=== PATIENT | female | born 1995 | race Caucasian/White ===

== ENCOUNTER 2017-07-10 18:19 | Emergency (ER) | payer OTHER ==
[~2017-07-10] VITALS: Ht 162.6 cm; Wt 90.5 kg
[~2017-07-10 18:19] MED LIST: AZIT250T94 PO; IBUP-1542 PO; PREN1TAB62 PO
[2017-07-10 18:42] VITALS: Ht 162.6 cm; Wt 90.5 kg
[2017-07-10] MEDS ORDERED: ONDANSETRON 4 MG INJ IV STA (21:05)
[2017-07-10] MEDS ORDERED: KETOROLAC 30 MG INJ IV STA (21:05)
[2017-07-10] MEDS ORDERED: SOD CHLORIDE 0.9% 500 ML IV STA (21:05)
[2017-07-10 22:25] LABS: BASOPHILS % 0.6 % (0.0-2.0); EOSINOPHILS # 0.1 10^3/ul (0.0-0.5); EOSINOPHILS % 1.2 % (0.0-7.0); HEMATOCRIT 39.8 % (37.0-47.0); HEMOGLOBIN 12.4 g/dl (12.0-16.0); LYMPHOCYTES # 2.2 10^3/ul (0.8-2.9); LYMPHOCYTES % 32.9 % (15.0-51.0); MEAN CORPUSCULAR HEMOGLOBIN 26.3 pg (29.0-33.0); MEAN CORPUSCULAR HGB CONC 31.2 g/dl (32.0-37.0); MEAN CORPUSCULAR VOLUME 84.3 fl (82.0-101.0); MEAN PLATELET VOLUME 11.2 fl (7.4-10.4); MONOCYTE # 0.5 10^3/ul (0.3-0.9); MONOCYTES % 7.1 % (0.0-11.0); NEUTROPHILS % 58.1 % (39.0-77.0); PLATELET COUNT 241 10^3/UL (140-415); RED BLOOD COUNT 4.72 10^6/ul (4.20-5.40); RED CELL DISTRIBUTION WIDTH 14.7 % (11.5-14.5); WHITE BLOOD COUNT 6.8 10^3/ul (4.8-10.8)
[2017-07-10 22:31] LABS: ADD UMIC YES; UR ASCORBIC ACID NEGATIVE (NEGATIVE); UR BILIRUBIN (Dip) NEGATIVE (NEGATIVE); UR BLOOD (Dip) NEGATIVE (NEGATIVE); UR CLARITY CLOUDY (CLEAR); UR COLOR YELLOW (YELLOW); UR GLUCOSE (Dip) NEGATIVE (NEGATIVE); UR KETONES (Dip) NEGATIVE (NEGATIVE); UR LEUKOCYTE ESTERASE (Dip) 3+ Leu/ul (NEGATIVE); UR MUCUS MODERATE /HPF (NONE SEEN); UR NITRITE (Dip) NEGATIVE (NEGATIVE); UR RBC 0 /HPF (0-5); UR SPECIFIC GRAVITY (Dip) 1.027 (1.003-1.030); UR SQUAMOUS EPITHELIAL CELL MODERATE /HPF (FEW); UR TOTAL PROTEIN (Dip) NEGATIVE (NEGATIVE); UR UROBILINOGEN (Dip) NEGATIVE (NEGATIVE)
[2017-07-10 22:43] LABS: INR 0.91; PROTIME 12.3 Sec (12.2-14.2)
[2017-07-10 22:46] LABS: CALCIUM 9.1 mg/dl (8.4-10.2); CREATININE 0.76 mg/dl (0.44-1.00)
--- NOTE | 2017-07-10 22:51 | RADRPT ---
PROCEDURE: US right upper quadrant CLINICAL INDICATION: Abdominal pain TECHNIQUE: Multiple real-time images were acquired of the patient's right upper abdomen utilizing a high resolution transducer. COMPARISON: CT abdomen and pelvis 07/07/2017 FINDINGS: Liver: Normal in size, contour and echogenicity. Normal directional blood flow is seen within the p atent main portal vein. The maximum dimension estimated at 16.6 cm . Gallbladder: Normal. No sonographic Burgos's sign is reported. Common bile duct: Normal; 1.7 mm. There is no evidence for choledocholithiasis. Right Kidney: Normal; maximum length measured at approximately 10.6 cm. Pancreas: Visualized portions are normal. The tail is partially obscured by bowel gas. RPTAT:HJJR IMPRESSION: Normal right upper quadrant ultrasound. Physician Paty Date Time Electronically viewed and signed by Physician Paty on 07/10/2017 22:50 /
[2017-07-10] MEDS ORDERED: CEPH-443 PO (22:57)
[2017-07-10 23:13] VITALS: BP 121/71; PULSE 72; RESP 20
--- NOTE | 2017-07-11 00:39 | ERD ---
ER Documentation Chief Complaint Date/Time DATE: 07/11/17 TIME: 00:35 Chief Complaint ABDOMINAL PAIN SINCE LAST NIGHT, DENIES N/V. HPI This patient is a 22-year-old female presenting to the emergency department with complaints of diffuse abdominal pain which radiates to the back bilaterally ongoing intermittently for the past 3 days. The patient was here 3 days ago and diagnosed with pneumonia and urinary tract infection. She was treated with a Z-Lex and 1 g Rocephin in the department. Symptoms are worse with standing. Constant. Pain is cramping in nature. She denies urinary symptoms, fevers, chills, or other symptoms currently. ROS All systems reviewed and are negative except as per history of present illness. Medications Home Meds Active Scripts Cephalexin* (Keflex*) 500 Mg Capsule, 500 MG PO TID for 7 Days, #21 CAP Prov:MALI DE ANDA PA-C 07/10/17 Ibuprofen* (Motrin*) 600 Mg Tab, 600 MG PO Q6, #30 TAB Prov:KEYLA GRANDE PA-C 07/07/17 Azithromycin* (Zithromax*) 250 Mg Tablet, 250 MG PO .ZPACK DIRECTED, #6 TAB TAKE 500 MG (2 TABS) THE FIRST DAY THEN 250 MG (1 TAB) DAYS 2-5 Prov:KEYLA GRANDE PA-C 07/07/17 Reported Medications Vit-Iron Fumarate-FA ( Vitamin Tablet) 1 Each Tablet, 1 TAB PO DAILY, TAB 03/06/16 Allergies Allergies: Coded Allergies: No Known Allergy (Unverified , 03/06/16) PMhx/Soc Medical and Surgical Hx: pt denies Medical Hx, pt denies Surgical Hx History of Surgery: No Anesthesia Reaction: No Hx Neurological Disorder: No Hx Respiratory Disorders: No Hx Cardiac Disorders: No Hx Psychiatric Problems: No Hx Miscellaneous Medical Probl: No Hx Alcohol Use: No Hx Substance Use: No Hx Tobacco Use: No Smoking Status: Never smoker Physical Exam Vitals Vital Signs Date Time Temp Pulse Resp B/P Pulse Ox O2 Delivery O2 Flow Rate FiO2 07/10/17 23:13 72 20 121/71 99 Room Air 07/10/17 18:42 98.8 86 17 111/56 98 Physical Exam Const: Nontoxic, well-appearing female in no acute distress. Head: Atraumatic Eyes: Normal Conjunctiva ENT: Normal External Ears, Nose and Mouth. Neck: Full range of motion..~ No meningismus. Resp: Clear to auscultation bilaterally Cardio: Regular rate and rhythm, no murmurs Abd: Soft, Diffuse tenderness to palpation with no rebound tenderness or guarding, non distended. Normal bowel sounds. There is increased tenderness palpation of the right upper quadrant but no true Bugros sign. Skin: No petechiae or rashes Back: No midline or flank tenderness Ext: No cyanosis, or edema Neur: Awake and alert Psych: Normal Mood and Affect Result Diagram: 07/10/17214407/10/172144 Results 24 hrs Laboratory Tests Test 07/10/17 21:45 07/10/17 21:50 White Blood Count 6.810^3/ul Red Blood Count 4.7210^6/ul Hemoglobin 12.4g/dl Hematocrit 39.8% Mean Corpuscular Volume 84.3fl Mean Corpuscular Hemoglobin 26.3pg Mean Corpuscular Hemoglobin Concent 31.2g/dl Red Cell Distribution Width 14.7% Platelet Count 59556^3/UL Mean Platelet Volume 11.2fl Neutrophils % 58.1% Lymphocytes % 32.9% Monocytes % 7.1% Eosinophils % 1.2% Basophils % 0.6% Nucleated Red Blood Cells % 0.0/100WBC Neutrophils # (Manual) 4.010^3/ul Lymphocytes # 2.210^3/ul Monocytes # 0.510^3/ul Eosinophils # 0.110^3/ul Basophils # 0.010^3/ul Nucleated Red Blood Cells # 0.010^3/ul Prothrombin Time 12.3Sec Prothrombin Time Ratio 1.0 INR International Normalized Ratio 0.91 Activated Partial Thromboplast Time 27.0Sec Sodium Level 144mmol/L Potassium Level 4.0mmol/L Chloride Level 105mmol/L Carbon Dioxide Level 24mmol/L Anion Gap 19 Blood Urea Nitrogen 9mg/dl Creatinine 0.76mg/dl Glucose Level 75mg/dl Calcium Level 9.1mg/dl Total Bilirubin 0.0mg/dl Direct Bilirubin 0.00mg/dl Indirect Bilirubin 0.0mg/dl Aspartate Amino Transf (AST/SGOT) 23IU/L Alanine Aminotransferase (ALT/SGPT) 33IU/L Alkaline Phosphatase 68IU/L Total Protein 8.0g/dl Albumin 4.0g/dl Globulin 4.00g/dl Albumin/Globulin Ratio 1.00 Lipase 132U/L Urine Color YELLOW Urine Clarity CLOUDY Urine pH 6.0 Urine Specific [place] 1.027 Urine Ketones NEGATIVEmg/dL Urine Nitrite NEGATIVEmg/dL Urine Bilirubin NEGATIVEmg/dL Urine Urobilinogen NEGATIVEmg/dL Urine Leukocyte Esterase 3+Jeanne/ul Urine Microscopic RBC 0/HPF Urine Microscopic WBC 12/HPF Urine Squamous Epithelial Cells MODERATE/HPF Urine Calcium Oxalate Crystals MANY/HPF Urine Mucus MODERATE/HPF Urine Hemoglobin NEGATIVEmg/dL Urine Glucose NEGATIVEmg/dL Urine Total Protein NEGATIVEmg/dl Current Medications Medications (Trade) Dose Ordered Sig/Tavon Route PRN Reason Start Time Stop Time Status Last Admin Dose Admin Sodium Chloride (NS) 500 ml @ 500 mls/hr Q1H STAT IV 07/10/17 21:05 07/10/17 22:04 DC 07/10/17 22:05 Ondansetron HCl (Zofran Inj) 4 mg ONCE STAT IV 07/10/17 21:05 07/10/17 21:08 DC 07/10/17 22:05 Ketorolac Tromethamine (Toradol) 30 mg ONCE STAT IV 07/10/17 21:05 07/10/17 21:08 DC 07/10/17 22:04 Procedures/MDM 22-year-old female presenting to the emergency department with complaints of abdominal pain worsening over the past 3 days. She was seen here recently and diagnosed with urinary tract infection and pneumonia. She was treated in the department with 1 g Rocephin and treated as an outpatient with a Z-Lex. Examination today was concerning for possible cholecystitis and so an ultrasound of the gallbladder was obtained, but this was unremarkable. The patient was treated in the department with IV Zofran, IV Toradol, and IV fluids. CBC was within normal limits. Chemistry was within normal limits. Urinalysis was concerning for urinary tract infection with 3+ leukocytes. The patient is stable for outpatient management with a prescription for cephalexin. She agreed with the discharge plan and diagnosis. She is to have close follow -up with her primary care physician. She is to return immediately for any new or worsening symptoms. Copies of results were given to the patient in the department. PROCEDURE: US right upper quadrant CLINICAL INDICATION: Abdominal pain TECHNIQUE: Multiple real-time images were acquired of the patient's right upper abdomen utilizing a high resolution transducer. COMPARISON: CT abdomen and pelvis 07/07/2017 FINDINGS: Liver: Normal in size, contour and echogenicity. Normal directional blood flow is seen within the patent main portal vein. The maximum dimension estimated at 16.6 cm . Gallbladder: Normal. No sonographic Burgos's sign is reported. Common bile duct: Normal; 1.7 mm. There is no evidence for choledocholithiasis. Right Kidney: Normal; maximum length measured at approximately 10.6 cm. Pancreas: Visualized portions are normal. The tail is partially obscured by bowel gas. RPTAT:HJJR IMPRESSION: Normal right upper quadrant ultrasound. Physician Paty Date Time Electronically viewed and signed by Physician Paty on 07/10/2017 22:50 Departure Diagnosis: Primary Impression: Urinary tract infection Condition: Fair Patient Instructions: Understanding Urinary Tract Infections (UTIs) Additional Instructions: Follow up with your PCP within the next 1-3 days for a repeat evaluation. If you require a referral to a specialist, your Primary Care Provider may be able to provide this for you. In most patient cases, a referral is not required. If you have further questions regarding this matter, please ask your Primary Care Provider. Return the the emergency department immediately if symptoms worsen or change. If you have any questions regarding medications, ask your pharmacist or us before you leave. If any adverse reactions, occur while taking your medications, discontinue the treatment and return to the emergency department immediately. If any new or worsening symptoms, uncontrolled fevers, or other unexplained symptoms occur, return to the emergency department immediately. Take your medications as directed, and complete the entire course of treatment. MALI DE ANDA PA-C Jul 11, 2017 00:39
== END 2017-07-10 23:15 | disposition home or self-care (01) ==
LOC: FTE 18:19
DX: N39.0 Urinary tract infection, site not specified (principal)
CPT/HCPCS: 36415; 76705; 80053; 81001; 83690; 85025; 85610; 85730; 96374; 96375; J1885; J2405; J7040; Z7502